=== PATIENT | male | born 1955 | race Caucasian/White ===

== ENCOUNTER 2023-12-09 08:47 | Emergency (ER) | payer MEDICARE, MEDICAID ==
[~2023-12-09] VITALS: Ht 165.1 cm; Wt 83.5 kg
[2023-12-09 08:51] VITALS: BP 130/63; PULSE 113; RESP 21; TEMP 99.1; O2SAT 98
[2023-12-09] MEDS ORDERED: HYDR-3965 PO (10:57)
[2023-12-09] MEDS ORDERED: METH-798 PO (10:57)
== END 2023-12-09 11:22 | disposition home or self-care (01) ==
LOC: ER 08:48
DX: M54.16 Radiculopathy, lumbar region (principal); M25.552 Pain in left hip; M54.50 Low back pain, unspecified; Z79.899 Other long term (current) drug therapy
CPT/HCPCS: 72100; 73502; 99284